=== PATIENT | female | born 1990 | race African-American/Black ===

== ENCOUNTER 2021-01-11 11:55 | Inpatient (IN) ==
[2021-01-11] MEDS ORDERED: AZITHROMYCIN 250 MG TABLET PO ONE (12:36)
[2021-01-11] MEDS ORDERED: oxyCODONE/ACETAMINOPHEN 5-325 MG TABLET PO PRN (14:01)
[2021-01-11] MEDS ORDERED: BUTORPHANOL 2 MG/ML VIAL IV PRN (14:01)
[2021-01-11] MEDS ORDERED: ACETAMINOPHEN 325 MG TABLET PO PRN (14:01)
[2021-01-11] MEDS ORDERED: ONDANSETRON 4 MG/2 ML VIAL IV PRN (14:01)
[2021-01-11 14:38] LABS: Basophils % 0.1 % (0.0-0.8); Eosinophils % 0.2 % (0.00-10.9); Hematocrit 31.5 VOL% (35.7-47.0); Immature Granulocytes % 0.7 %; Lymphocytes # 2.3 10*3/uL (1.4-4.0); Lymphocytes % 16.8 % (21.3-54.2); Mean Corpuscular HGB Conc 34.9 GM/DL (32-36); Mean Corpuscular Volume 86.3 FL (87-102); Mean Platelet Volume 11.2 FL (9.6-12.0); Monocytes % 5.7 % (1.7-12.7); Neutrophils % 76.5 % (38.7-73.9); Platelet Count 198 T/CUMM (130-400); Red Blood Count 3.65 MC/CUMM (3.8-5.5); Red Cell Distribution Width 13.4 % (9.3-17.3); White Blood Count 13.8 T/CUMM (4-12)
[2021-01-11] MEDS: LACTATED RINGERS 1,000 ML IV SCH (14:49)
[2021-01-11 14:59] LABS: Albumin 2.6 G/DL (3.4-5.0); Bilirubin,Total 0.4 MG/DL (0.2-1.0); Calcium 8.7 MG/DL (8.5-10.1); Potassium 3.8 MMOL/L (3.5-5.1); Total Protein 7.2 G/DL (6.4-8.3)
[2021-01-12] MEDS: LACTATED RINGERS 1,000 ML IV SCH ×2 (03:28→15:06)
[2021-01-12] MEDS: MEPERIDINE 50 MG/1 ML VIAL IV PRN ×2 (09:58→12:20)
[2021-01-12] MEDS ORDERED: TERBUTALINE 1 MG/1 ML VIAL SUBCUT ONE (11:23)
[2021-01-12] MEDS ORDERED: CITRIC ACID/SODIUM CITRATE 30 ML UDCUP PO ONE (15:07)
[2021-01-12] MEDS ORDERED: LACTATED RINGERS 1,000 ML IV ONE (15:07)
[2021-01-12] MEDS ORDERED: FAMOTIDINE 20 MG/2 ML VIAL IV ONE (15:07)
[2021-01-12] MEDS ORDERED: NALOXONE 0.4 MG/ML VIAL IV PRN (15:08)
[2021-01-12] MEDS ORDERED: hydrOXYzine HCL 25 MG/1 ML VIAL IM PRN (15:08)
[2021-01-12] MEDS ORDERED: PROMETHAZINE 25 MG/1 ML VIAL IM ONE (15:08)
[2021-01-12] MEDS ORDERED: diphenhydrAMINE 50 MG/1 ML VIAL IV PRN ×2 (15:08)
[2021-01-12] MEDS ORDERED: ePHEDrine 50 MG/ML VIAL IV PRN (15:08)
[2021-01-12] MEDS ORDERED: OXYTOCIN/LR 20 UNIT/1,000 ML BAG IV ONE ×2 (15:22→20:02)
[2021-01-12] MEDS ORDERED: fentaNYL 2 MCG/ROPIV 0.2% EPID 100 ML EPIDURAL SCH (15:30)
[2021-01-12] MEDS ORDERED: TRANEXAMIC ACID 1,000 MG/10 ML VIAL ONE (15:48)
[2021-01-12] MEDS ORDERED: miSOPROStoL 200 MCG TABLET ONE (15:48)
[2021-01-12] MEDS ORDERED: OXYTOCIN/LR 0 UNIT/0 ML BAG IV ONE (15:48)
[2021-01-12] MEDS ORDERED: METHYLERGONOVINE 0.2 MG/1 ML AMP ONE (15:49)
[2021-01-12] MEDS ORDERED: CARBOPROST TROMETHAMINE 250 MCG/ML AMP IM ONE (15:49)
[2021-01-12 16:28] LABS: Cord Venous Blood HCO3 20.3 MMOL/L; Cord Venous Blood PCO2 40.8 MMHG; Cord Venous Blood PO2 39.4
[2021-01-12] MEDS ORDERED: BENZOCAINE 20%/MENTHOL 0.5% SPRAY 56 GM CAN TOP PRN (20:02)
[2021-01-12] MEDS ORDERED: RHO(D) IMMUNE GLOBULIN 300 MCG SYRINGE IM ONE (20:02)
[2021-01-12] MEDS ORDERED: HYDROCORTISONE 2.5% RECTAL CREAM 30 GM TUBE TOP PRN (20:02)
[2021-01-12] MEDS ORDERED: ACETAMINOPHEN 325 MG TABLET PO PRN (20:02)
[2021-01-12] MEDS ORDERED: BISACODYL 10 MG SUPP RECTAL PRN (20:02)
[2021-01-12] MEDS ORDERED: LANOLIN 50% CREAM 0.3 OZ TUBE TOP PRN (20:02)
[2021-01-12] MEDS ORDERED: oxyCODONE/ACETAMINOPHEN 5-325 MG TABLET PO PRN ×2 (20:02)
[2021-01-12] MEDS ORDERED: WITCH HAZEL PADS 100/JAR TOP PRN (20:02)
[2021-01-12] MEDS ORDERED: DIPH/TET/ACEL PERT BOOSTER VACCINE 0.5 ML VIAL IM ONE (20:02)
[2021-01-12] MEDS ORDERED: MEASLES/MUMPS/RUBELLA VACCINE 0.5 ML VIAL SUBCUT ONE (20:02)
[2021-01-12] MEDS: DOCUSATE SODIUM 100 MG CAPSULE PO SCH (20:20)
[2021-01-12] MEDS: IBUPROFEN 800 MG TABLET PO PRN (20:20)
[2021-01-13 05:40] LABS: Basophils % 0.2 % (0.0-0.8); Eosinophils % 0.1 % (0.00-10.9); Hematocrit 25.9 VOL% (35.7-47.0); Hemoglobin 9.5 GM/DL (12.0-16.0); Immature Granulocytes % 0.6 %; Lymphocytes # 2.6 10*3/uL (1.4-4.0); Lymphocytes % 14.6 % (21.3-54.2); Mean Corpuscular HGB Conc 36.7 GM/DL (32-36); Mean Corpuscular Volume 84.1 FL (87-102); Monocytes % 7.3 % (1.7-12.7); Neutrophils % 77.2 % (38.7-73.9); Platelet Count 176 T/CUMM (130-400); Red Blood Count 3.08 MC/CUMM (3.8-5.5); Red Cell Distribution Width 13.2 % (9.3-17.3); White Blood Count 17.7 T/CUMM (4-12)
[2021-01-13] MEDS: FERROUS SULFATE 325 MG TABLET PO SCH ×2 (08:53→21:19)
[2021-01-13] MEDS: DOCUSATE SODIUM 100 MG CAPSULE PO SCH ×2 (08:53→21:18)
[2021-01-13] MEDS: IBUPROFEN 800 MG TABLET PO PRN (23:44)
[2021-01-14 07:11] VITALS: BP 129/78
[2021-01-14] MEDS: DOCUSATE SODIUM 100 MG CAPSULE PO SCH (08:23)
[2021-01-14] MEDS: FERROUS SULFATE 325 MG TABLET PO SCH (08:23)
[2021-01-14] MEDS ORDERED: INFLUENZA VIRUS VACCINE 0.5 ML SYRINGE IM ONE (10:41)
== END 2021-01-14 15:15 | disposition home or self-care (01) | DRG 560 ==
LOC: N.LDOUT 11:55 → N.LD 12:00 → N.OB 01-12 19:51
PROVIDERS: ADMIT Obstetrics & Gynecology; ATTEND Obstetrics & Gynecology